=== PATIENT | female | born 1995 | race Caucasian/White ===

== ENCOUNTER 2016-12-11 09:12 | Emergency (ER) | payer OTHER ==
[~2016-12-11] VITALS: Ht 167.6 cm; Wt 59.1 kg
[2016-12-11 10:14] LABS: BASO # 0.1 10^3/uL (0.0-0.2); BASO % 0.4 % (0.0-1.0); EOS # 0.1 10^3/uL (0.0-0.50); EOS % 0.3 % (0.0-3.0); IMMATURE GRANULOCYTE % 0.4 % (0-0); LYMPH # 2.2 10^3/uL (1.5-6.5); LYMPH % 13.9 % (24.0-44.0); MEAN CORPUSCULAR HEMOGLOBIN 29.4 pg (27.0-33.0); MEAN CORPUSCULAR VOLUME 89.1 fl (80.0-96.0); MONO # 1.5 10^3/uL (0.0-0.8); MONO % 9.2 % (0.0-5.0); NEUTROPHILS # 12.1 10^3/uL (1.8-7.7); NEUTROPHILS % 75.8 % (36.0-66.0); PLATELET COUNT, AUTOMATED 157 10^3/uL (150-450); RED CELL DISTRIBUTION WIDTH 12.1 % (11.5-14.5); WHITE BLOOD COUNT 15.9 10^3/uL (4.0-10.0)
[2016-12-11 10:53] LABS: ANION GAP 6 MEQ/L (8-16); BLOOD UREA NITROGEN 16 MG/DL (7-18); CALCIUM LEVEL 9.1 MG/DL (8.5-10.1); CARBON DIOXIDE LEVEL 25 MEQ/L (21-32); CHLORIDE LEVEL 108 MEQ/L (98-107); CREATININE FOR GFR 0.59 MG/DL (0.55-1.02); GLUCOSE, FASTING 96 MG/DL (70-105); POTASSIUM SERUM 4.3 MEQ/L (3.5-5.1); SODIUM LEVEL 139 MEQ/L (136-145)
[2016-12-11] MEDS ORDERED: LIDOCAINE 2% MDV 20 ML VIAL SC ONE (11:45)
--- NOTE | 2016-12-11 12:06 | REP ---
PELVIC ULTRASOUND: Real-time sonographic evaluation of the pelvis performed utilizing transabdominal and endovaginal technique. The urinary bladder is empty. The uterus measures 8.1 x 3.9 x 5.7 cm. Endometrial thickness is 12 mm. There appears to be a small amount of complex fluid in the endometrial canal measuring 5 x 4 x 7 mm. Ovaries appear normal in size and echotexture, right ovary measuring 4.3 x 2.3 x 4.0 cm and left ovary 2.3 x 1.8 x 1.9 cm. There is no adnexal mass or free fluid identified. Blood flow is seen in each ovary with duplex Doppler evaluation, with no torsion, RI right ovary 0.27 and RI left ovary 0.62. Scanning is also performed of the right labia which demonstrates swelling. There is a complex fluid collection in the right labia measuring 3.4 x 2.0 x 2.0 cm. This may represent an abscess. IMPRESSION: Small amount of complex fluid in the endometrial canal measuring 5 x 4 x 7 mm. No adnexal mass or free fluid. No torsion. Complex fluid in the right labia may represent an abscess. Signed by Baljeet Davis MD 12/11/2016 07:51 P
[2016-12-11] MEDS ORDERED: KEFL500C17 PO (12:35)
[2016-12-11 12:45] VITALS: BP 111/67
--- NOTE | 2016-12-13 08:54 | ED PDOC ---
Post-Departure Follow-Up dr stanley faxed formal report of pelvic us for fu Matilde Newell MD Dec 13, 2016 08:54
== END 2016-12-11 12:43 | disposition home or self-care (01) ==
LOC: M ED 09:12
DX: N75.1 Abscess of Bartholin's gland (principal); N85.8 Other specified noninflammatory disorders of uterus

== ENCOUNTER → 2017-04-26 | Outpatient (CLI) | payer OTHER | LOC: M LRY 10:22 | DX: S99.911A Unspecified injury of right ankle, initial encounter (principal); S99.921A Unspecified injury of right foot, initial encounter; W18.30XA Fall on same level, unspecified, initial encounter; Y92.009 Unspecified place in unspecified non-institutional (private) residence as the place of occurrence of the external cause ==

== ENCOUNTER → 2017-05-07 | Outpatient (REF) | payer OTHER ==
[2017-05-07 14:03] LABS: HEMATOCRIT 40.9 % (36.0-47.0); HEMOGLOBIN 13.7 g/dl (12.0-16.0); MEAN CORPUSCULAR HEMOGLOBIN 29.1 pg (27.0-33.0); MEAN CORPUSCULAR HGB CONC 33.5 g/dl (32.0-36.5); MEAN CORPUSCULAR VOLUME 86.8 fl (80.0-96.0); PLATELET COUNT, AUTOMATED 205 10^3/uL (150-450); RED BLOOD COUNT 4.71 10^6/uL (4.00-5.40); RED CELL DISTRIBUTION WIDTH 11.9 % (11.5-14.5); WHITE BLOOD COUNT 7.8 10^3/uL (4.0-10.0)
[2017-05-07 14:21] LABS: HCG, SERUM QUANTITATIVE 1992 MIU/ML
[2017-05-08 10:10] LABS: RUBELLA IgG QUALITATIVE IMMUNE (IMMUNE)
[2017-05-08 10:20] LABS: HBsAg Prenatal NEGATIVE (NEGATIVE)
[2017-05-08 10:40] LABS: HIV 1&2 SCREEN CENTAUR NEGATIVE (NEGATIVE)
[2017-05-08 10:40] LABS: HEPATITIS C VIRUS ABY INDEX 0.1 INDEX (<0.8)
== END ==
LOC: M LAB REF 13:17
DX: O36.80X0 Pregnancy with inconclusive fetal viability, not applicable or unspecified (principal)

== ENCOUNTER → 2017-10-16 | Outpatient (CLI) | payer OTHER ==
[2017-10-16 13:50] LABS: GLUCOSE CHALLENGE TEST 1 HOUR 75 MG/DL (LESS THAN 140)
[2017-10-16 14:30] LABS: HEPATITIS C VIRUS ABY INDEX 0.1 INDEX (<0.8)
== END ==
LOC: M SMT 09:46
DX: Z36.89 Encounter for other specified antenatal screening (principal); Z3A.00 Weeks of gestation of pregnancy not specified
CPT/HCPCS: 82950

== ENCOUNTER → 2017-10-23 | Outpatient (CLI) | payer OTHER ==
[2017-10-23 13:25] LABS: HEMATOCRIT 34.6 % (36.0-47.0); HEMOGLOBIN 11.4 g/dl (12.0-15.5); MEAN CORPUSCULAR HEMOGLOBIN 30.7 pg (27.0-33.0); MEAN CORPUSCULAR HGB CONC 32.9 g/dl (32.0-36.5); MEAN CORPUSCULAR VOLUME 93.3 fl (80.0-96.0); PLATELET COUNT, AUTOMATED 154 10^3/uL (150-450); RED BLOOD COUNT 3.71 10^6/uL (4.00-5.40); RED CELL DISTRIBUTION WIDTH 12.9 % (11.5-14.5); WHITE BLOOD COUNT 11.3 10^3/uL (4.0-10.0)
== END ==
LOC: M SMT 10:23
DX: Z34.82 Encounter for supervision of other normal pregnancy, second trimester (principal); Z36.89 Encounter for other specified antenatal screening
CPT/HCPCS: 85027

== ENCOUNTER → 2017-12-14 | Outpatient (REF) | payer OTHER | LOC: M LAB REF 17:25 | DX: Z34.03 Encounter for supervision of normal first pregnancy, third trimester (principal) ==

== ENCOUNTER → 2018-01-04 | Outpatient (CLI) | payer OTHER ==
[2018-01-04 13:55] LABS: ALT/SGPT 12 U/L (12-78); AST/SGOT 17 U/L (7-37); BILIRUBIN,TOTAL 0.2 MG/DL (0.2-1.0); CREATININE FOR GFR 0.75 MG/DL (0.55-1.30); GLOMERULAR FILTRATION RATE > 60.0 (>60); URIC ACID 5.4 MG/DL (2.6-6.0)
[2018-01-04 13:58] LABS: HEMATOCRIT 37.7 % (36.0-47.0); HEMOGLOBIN 12.1 g/dl (12.0-15.5); MEAN CORPUSCULAR HGB CONC 32.1 g/dl (32.0-36.5); MEAN CORPUSCULAR VOLUME 90.4 fl (80.0-96.0); PLATELET COUNT, AUTOMATED 122 10^3/uL (150-450); RED BLOOD COUNT 4.17 10^6/uL (4.00-5.40); RED CELL DISTRIBUTION WIDTH 12.4 % (11.5-14.5); WHITE BLOOD COUNT 11.3 10^3/uL (4.0-10.0)
[2018-01-04 14:33] LABS: CREATININE,RANDOM URINE 99.3 MG/DL
[2018-01-04 14:33] LABS: TOTAL PROTEIN,RANDOM URINE 65.5 MG/DL (0.0-12.0)
[2018-01-04 14:34] LABS: LDH LACTATE DEHYDROGENASE 248 U/L (84-246)
== END ==
LOC: M SMT 09:04
DX: O16.3 Unspecified maternal hypertension, third trimester (principal)
CPT/HCPCS: 84460

== ENCOUNTER 2018-01-05 03:26 | Inpatient (IN) | payer OTHER ==
[2018-01-05 05:57] LABS: HEMATOCRIT 33.6 % (36.0-47.0); HEMOGLOBIN 11.1 g/dl (12.0-15.5); MEAN CORPUSCULAR VOLUME 87.7 fl (80.0-96.0); PLATELET COUNT, AUTOMATED 112 10^3/uL (150-450); RED BLOOD COUNT 3.83 10^6/uL (4.00-5.40); RED CELL DISTRIBUTION WIDTH 12.4 % (11.5-14.5); WHITE BLOOD COUNT 15.8 10^3/uL (4.0-10.0)
[2018-01-05 06:29] LABS: ALT/SGPT 10 U/L (12-78); AST/SGOT 16 U/L (7-37); BILIRUBIN,TOTAL 0.2 MG/DL (0.2-1.0); GLOMERULAR FILTRATION RATE > 60.0 (>60); LDH LACTATE DEHYDROGENASE 238 U/L (84-246); URIC ACID 5.2 MG/DL (2.6-6.0)
[2018-01-05] MEDS: LR 1,000 ML IV ×3 (10:48→22:49)
[2018-01-05] MEDS: OXYTOCIN DRIP 30 UNITS in APPROPRIATE DILUENT 1 EA IV (10:53)
[2018-01-05] MEDS: LR 800 ML IV (13:15)
[2018-01-05] MEDS ORDERED: FENTANYL 2MCG/ML ROPIVACAINE 0.2% IN 0.9% NACL 200ML IVBAG As Ordered (13:41)
[2018-01-05 14:27] LABS: HEMATOCRIT 33.3 % (36.0-47.0); HEMOGLOBIN 11.1 g/dl (12.0-15.5); MEAN CORPUSCULAR HEMOGLOBIN 29.2 pg (27.0-33.0); MEAN CORPUSCULAR HGB CONC 33.3 g/dl (32.0-36.5); MEAN CORPUSCULAR VOLUME 87.6 fl (80.0-96.0); PLATELET COUNT, AUTOMATED 110 10^3/uL (150-450); RED CELL DISTRIBUTION WIDTH 12.5 % (11.5-14.5); WHITE BLOOD COUNT 16.9 10^3/uL (4.0-10.0)
[2018-01-05] MEDS: FENTANYL/ROPIVACAINE/NACL BAG 200 ML EPIDURAL (14:53)
[2018-01-05] MEDS ORDERED: REFRIGERATOR IV KEYS XX (15:30)
[2018-01-05] MEDS ORDERED: LACTATED RINGER'S 1000 ML IV (15:30)
[2018-01-05] MEDS ORDERED: EPIDURAL COMMENT XX (15:30)
[2018-01-05] MEDS ORDERED: ePHEDrine SULFATE 25 MG/5 ML(5MG/ML) SYRINGE IV (15:30)
[2018-01-05] MEDS ORDERED: NALOXONE INJ 0.4 MG/1 ML VIAL (J2310) IV (15:30)
[2018-01-05] MEDS ORDERED: EPIDURAL/PCA KEYS XX (15:30)
[2018-01-05] MEDS ORDERED: diphenhydrAMINE INJ 50MG/ML VIAL (J1200) IV (15:30)
[2018-01-05] MEDS: ONDANSETRON 4MG/2ML VIAL (J2405) IV (19:14)
[2018-01-05] MEDS ORDERED: ACETAMINOPHEN 500 MG TAB As Ordered (19:43)
[2018-01-05] MEDS: ACETAMINOPHEN 500 MG TAB PO (19:47)
[2018-01-06] MEDS ORDERED: RHOGAM 300 MCG (1500 IU) INJ (J2790) IM (00:45)
[2018-01-06] MEDS ORDERED: MEASLES,MUMPS,RUBELLA VACCINE INJ (MMR-II) (90707) SC (00:45)
[2018-01-06] MEDS ORDERED: DOCUSATE SODIUM 100 MG CAP PO (00:45)
[2018-01-06] MEDS ORDERED: ONDANSETRON 4MG/2ML VIAL (J2405) IV (00:45)
[2018-01-06] MEDS ORDERED: METHYLERGONOVINE MALEATE 0.2 MG TAB PO (00:45)
[2018-01-06] MEDS: OXYTOCIN DRIP 30 UNITS in APPROPRIATE DILUENT 1 EA IV (01:21)
[2018-01-06] MEDS: IBUPROFEN 800 MG TAB PO ×2 (01:34→20:36)
[2018-01-06] MEDS: PRENATAL VITAMINS CHEWABLE TABLET PO (08:15)
[2018-01-06] MEDS: ACETAMINOPHEN 500 MG TAB PO ×2 (08:16→14:30)
[2018-01-06] MEDS: DIBUCAINE 1% OINTMENT 30GM TOP (20:37)
[2018-01-07] MEDS: IBUPROFEN 800 MG TAB PO (05:49)
[2018-01-07] MEDS: PRENATAL VITAMINS CHEWABLE TABLET PO (09:38)
== END 2018-01-07 12:15 | disposition home or self-care (01) | DRG 775 ==
LOC: M LDO 03:26 → M OBS 01-06 02:20 → M LDI 05:02
PROC: 10D07Z3 Extraction of Products of Conception, Low Forceps, Via Natural or Artificial Opening (ICD-10-PCS; principal; 2018-01-05)
PROC: 0HQ9XZZ Repair Perineum Skin, External Approach (ICD-10-PCS; 2018-01-05)
DX: O14.94 Unspecified pre-eclampsia, complicating childbirth (principal); Z3A.39 39 weeks gestation of pregnancy; O64.0XX0 Obstructed labor due to incomplete rotation of fetal head, not applicable or unspecified; O70.0 First degree perineal laceration during delivery; Z37.0 Single live birth